=== PATIENT | female | born 1980 | race Hispanic/Latino ===

== ENCOUNTER 2016-11-25 05:30 | Day surgery (SDC) | payer SELFPAY ==
[2016-11-25] MEDS ORDERED: LACTATED RINGERS 1,000 ML ONE (06:34)
[2016-11-25] MEDS ORDERED: SODIUM CHL 0.9% 100ML MINI-BAG 100 ML IVPB ONE (06:34)
[2016-11-25] MEDS ORDERED: ceFAZolin SODIUM 1 GM VIAL ONE (06:34)
[2016-11-25] MEDS ORDERED: HEPARIN SODIUM (PORCINE) 10,000 UNITS/ML VIAL ONE (07:07)
[2016-11-25] MEDS ORDERED: BUPIVACAINE 0.25% W/EPI 50 ML VIAL INJ ONE (07:07)
[2016-11-25] MEDS ORDERED: MIDAZOLAM INJ 5 MG/5 ML VIAL ONE (08:03)
[2016-11-25] MEDS ORDERED: ROCURONIUM BROMIDE 10 MG/ML VIAL ONE ×2 (08:03→10:02)
[2016-11-25] MEDS ORDERED: fentaNYL CITRATE INJ 50 MCG/ML AMP ONE (08:03)
[2016-11-25] MEDS ORDERED: SUCCINYLCHOLINE CHLORIDE 200 MG/10 ML VIAL ONE (08:22)
[2016-11-25] MEDS ORDERED: HYDROmorphone HCL INJ 2 MG/ML VIAL ONE (10:01)
[2016-11-25] MEDS ORDERED: ELECTROLYTE-A 1,000 ML ONE (10:10)
[2016-11-25] MEDS ORDERED: ONDANSETRON INJ 4 MG/2 ML VIAL ONE (11:15)
[2016-11-25] MEDS ORDERED: HYDROcodone 7.5MG/APAP 325MG 1 EA TAB ONE (11:40)
--- NOTE | 2016-11-25 11:43 | OP ---
DATE OF PROCEDURE: 11/25/16 PREOPERATIVE DIAGNOSIS: 1. Symptomatic cholelithiasis. 2. History of elevated liver function tests. POSTOPERATIVE DIAGNOSIS: 1. Symptomatic cholelithiasis. 2. History of elevated liver function tests. 3. Chronic cholecystitis. 4. Fatty infiltration of the liver. PROCEDURE: 1. Laparoscopic cholecystectomy with intraoperative cholangiography using fluoroscopy. 2. Wedge biopsy, right lobe of the liver. SURGEON: Bernardino Puckett MD. RETAIL HELPER: None. ANESTHESIA: Local infiltration of 0.25% Marcaine with epinephrine and general endotracheal anesthesia. INDICATION: The patient is a 36-year-old female who has had three years of right upper quadrant pain, fatty food intolerance, bloating, and has sonographically diagnosed cholelithiasis. The patient was brought to the [facility] today for cholecystectomy after the risks, benefits and alternatives to the procedure were discussed and accepted. FINDINGS: The gallbladder was minimally thickened. There were adhesions from the duodenum to the gallbladder, which were thin. Intraoperative cholangiography revealed free flow into the duodenum with no filling defects or strictures noted. The upper biliary tree was quite difficult to dilate, but was all intact with no obvious strictures. The liver had what appeared to be obvious fatty infiltration. Pathology is pending. DESCRIPTION OF PROCEDURE: After adequate general endotracheal anesthesia was obtained, the patient was placed in the supine position and prepped and draped in the usual sterile manner. Surgical time-out was taken. The supraumbilical area was infiltrated with local anesthesia. A vertical incision was made with a sharp knife. Dissection was carried down through the skin and subcutaneous tissue to the midline fascia using blunt dissection. Traction sutures were placed on either side of the midline. A small incision was made in the midline fascia and the peritoneum was opened bluntly. Kera trocar was introduced under direct vision into the abdominal cavity and fixed in place with the traction sutures. CO2 was then insufflated until a pressure of 12 mmHg was reached and the abdomen was tympanitic in all four quadrants. When this was done, the laparoscope was introduced. The abdomen was inspected with the previously noted findings. The patient was then placed in reverse Trendelenburg position, turned to the left side. The upper abdominal ports were placed under direct vision. The gallbladder was grasped, retracted anteriorly and laterally. At this point, the duodenum was dissected free with gentle blunt dissection. The neck of the gallbladder was retracted laterally. The triangle of Calot was then explored with the cystic duct and cystic artery identified and isolated. The cystic duct was hemoclipped proximally. A small incision was made in the cystic duct. The cholangiogram catheter was introduced through a separate stab wound in the right upper quadrant, introduced into the cystic duct and clipped in place. Cholangiograms were then taken using fluoroscopy which revealed free flow into the duodenum with no filling defects or strictures noted. When this was done, the cystic duct catheter was removed. The cystic duct was hemoclipped three times distally and divided between the hemoclips. The cystic artery was identified a clipped. A second arterial vessel was identified and clipped. The gallbladder was then dissected free from the gallbladder bed of the liver using electrocautery. The gallbladder was placed in an EndoCatch bag and removed from the supraumbilical port site in the usual manner under direct vision. When this was done, the subhepatic space was inspected. Hemostasis was obtained with electrocautery. When this was done , the angella hepatis was inspected and good hemostasis was noted there. The subhepatic space and subphrenic space were irrigated with saline. Hemostasis was again noted to be adequate. At this point, a wedge biopsy of the right lobe of the liver was performed, first with sharp scissors. The specimen was removed and sent for pathologic evaluation. Hemostasis was obtained with electrocautery turned up first to 50 and then to 65 on Coag only. When hemostasis was obtained, the subhepatic space and subphrenic space on the right were again irrigated with saline. The effluent was noted to be clear. There was good hemostasis noted. The upper abdominal ports were removed and adequate hemostasis was noted. At this point, the CO2, the laparoscope and the supraumbilical port were removed. The supraumbilical port site fascia was approximated with a single [id number] suture of 0 Vicryl. Subcutaneous tissue was irrigated with saline. The subcutaneous tissues at the supraumbilical port site were reapproximated with a simple suture of 0 Vicryl, buried. When this was done, skin edges were approximated with 4-0 Vicryl subcuticular sutures, benzoin and Steri-Strips. Sterile dressings were applied. The patient was awakened and taken to the Recovery Room in stable condition. Estimated blood loss was approximately 50 mL. All sponge, needle and instrument counts were correct. #[id number] [facility]PITALThad
[2016-11-25 11:48] VITALS: TEMP 98.3
[2016-11-25] MEDS ORDERED: PROPOFOL 200 MG/20 ML VIAL IV ONE (12:00)
[2016-11-25] MEDS ORDERED: LIDOCAINE 1% 10 ML VIAL INJ ONE (12:00)
[2016-11-25] MEDS ORDERED: DEXAMETHASONE INJ 10 MG/ML VIAL IV ONE (12:00)
[2016-11-25] MEDS ORDERED: GLYCOPYRROLATE 0.2 MG/ML VIAL IV ONE (12:00)
[2016-11-25] MEDS ORDERED: raNITIdine HCL INJ 25 MG/ML VIAL IV ONE (12:00)
[2016-11-25 12:48] VITALS: BP 165/76; O2SAT 95
== END 2016-11-25 12:25 | disposition home or self-care (01) ==
LOC: AMB 05:30
PROVIDERS: ATTEND Surgery
DX: K80.10 Calculus of gallbladder with chronic cholecystitis without obstruction (principal); K76.0 Fatty (change of) liver, not elsewhere classified; E11.9 Type 2 diabetes mellitus without complications; Z79.899 Other long term (current) drug therapy
CPT/HCPCS: 00790; 36415; 36416; 47100; 47563; 76000; 80053; 81001; 82948; 85025; J0330; J0690; J1100; J1170; J1644; J2250; J2405; J2780; J3010; J3490; J7050; J7120

== ENCOUNTER → 2017-10-20 | Outpatient (CLI) | payer OTHER | LOC: LAB.O 18:23 | PROVIDERS: ATTEND Nurse Practitioner Acute Care | DX: R31.0 Gross hematuria (principal) ==

== ENCOUNTER → 2018-03-11 | Outpatient (CLI) | payer OTHER ==
--- NOTE | 2018-03-11 17:08 | MRI ---
EXAM DESCRIPTION: Lumbar Spine w/o Contrast : Magnetic Resonance Imaging. CLINICAL HISTORY: RADICULOPATHY COMPARISON: None. TECHNIQUE: Multiplanar, multiple standard sequences, non contrast MRI, lumbar spine. FINDINGS: L5-S1: Disc desiccation and minimal disc space loss. Left posterior 7 mm disc protrusion impressing on the left ventral thecal sac, and the descending left S1 nerve root in the left lateral recess. Posterior elements unremarkable. Bilateral mild foraminal narrowing. L4-5: Disc desiccation posterior midline bright T2-weighted signal indicating annular fissure abutting the thecal sac. Mild canal narrowing. Posterior elements unremarkable. Bilateral foramina are patent. Remaining discs with normal signal in disc spaces preserved. Posterior elements unremarkable, except for hypertrophy of the flavum ligaments at L2-3. Canal and foramina are patent. Conus terminates at L1. Minimal left convex L2-L4. Paravertebral soft tissues minimal paraspinal muscle atrophy.. Normal marrow signal in the remaining vertebral bodies and the posterior elements. Vertebral bodies are not compressed at any level. IMPRESSION: 1. Left posterior L5-S1 disc protrusion impinging the left ventral thecal sac, descending left S1 nerve, and creating left lateral recess stenosis. Left paracentral canal stenosis. No significant foraminal stenosis. 2. Posterior midline L4-5 annular fissure with mild canal narrowing. No foraminal stenosis. 3. Hypertrophy of the flavum ligaments posteriorly at L2-3 but no significant canal narrowing. Disc and facets are negative with no foraminal narrowing. Electronically signed by: Jimmy Addison MD 03/11/2018 5:06 PM CDT
== END ==
LOC: MRI 12:55
PROVIDERS: ATTEND Family Medicine
DX: M51.17 Intervertebral disc disorders with radiculopathy, lumbosacral region (principal)